=== PATIENT | male | born 1955 | race Caucasian/White ===

== ENCOUNTER 2020-12-01 11:25 | Emergency (ER) | payer BC ==
[2020-12-01 11:42] VITALS: BP 132/74; PULSE 64; TEMP 97.7; BMI 22.1
[2020-12-01] MEDS ORDERED: ACETAMINOPHEN 325 MG TABLET (FP) PO ONE (12:18)
[2020-12-01 12:22] LABS: BASO % 0.6 % (0-2.0); EOS % 1.5 % (0-4.5); HEMATOCRIT 37.2 % (35.4-49); HEMOGLOBIN 12.6 GM/dL (11.7-16.9); LYMPH % 11.2 % (8-40); MCHC 33.8 g/dl (32.0-35.9); MEAN PLT VOLUME 8.7 fl (7.5-11.1); MONO % 9.3 % (3.8-10.2); NEUT % 77.4 % (42.8-82.8); PLATELET COUNT 180 10^3/uL (134-434); RBC 4.33 M/mm3 (4.00-5.60); RDW 13.6 % (11.9-15.9); WHITE BLOOD COUNT 6.6 K/mm3 (4.0-10.0)
[2020-12-01] MEDS ORDERED: ACETAMINOPHEN 325 MG TABLET (FP) ONE (12:26)
[2020-12-01 12:33] LABS: ACTIVATED PTT 59.1 SECONDS (25.2-36.5)
[2020-12-01 12:56] LABS: INR 4.94 (0.83-1.09); PROTHROMBIN TIME (PATIENT) 60.8 SEC (9.7-13.0)
== END 2020-12-01 16:23 | disposition home or self-care (01) ==
LOC: JERFT 11:25
DX: M79.81 Nontraumatic hematoma of soft tissue (principal); R79.1 Abnormal coagulation profile
CPT/HCPCS: 36415; 85025; 85610; 85730; 93971; 99284-25